=== PATIENT | male | born 1930 | race Caucasian/White ===

== ENCOUNTER 2016-11-08 10:11 | Inpatient (IN) | payer MEDICARE, BC ==
[2016-11-08 10:39] LABS: BASOPHILS % (AUTO) 1 % (0-3); EOSINOPHILS % (AUTO) 0 % (0-9); HEMATOCRIT 36 % (39-53); MEAN CORPUSCULAR HGB CONC 34.2 gm/dl (32.0-36.0); MEAN CORPUSCULAR VOLUME 84 fL (80-100); MONOCYTES % (AUTO) 9.8 % (0-12); NEUTROPHILS % (AUTO) 82.4 % (37-80)
[2016-11-08 10:52] LABS: ALBUMIN 3.5 gm/dl (3.4-5.0); CALCIUM 8.5 mg/dl (8.5-10.1); DIGOXIN 0.8 ng/ml (0.9-2.0)
[2016-11-08] MEDS ORDERED: SODIUM CHLORIDE 0.9% 1000ML 1,000 ML IV SCH ×2 (12:15→13:04)
[2016-11-08] MEDS ORDERED: SODIUM CHLORIDE 0.9% FLUSH 10 ML SOL IV PRN (12:15)
[2016-11-08] MEDS ORDERED: PATIENT EDUCATION 1 MISC PRN (12:58)
[2016-11-08] MEDS ORDERED: WARFARIN SODIUM 5 MG TAB PO SCH (15:15)
[2016-11-08] MEDS ORDERED: AMITRIPTYLINE 10 MG TAB PO SCH (21:00)
[2016-11-08] MEDS ORDERED: SIMVASTATIN 20 MG TAB PO SCH (21:00)
[2016-11-08] MEDS: DOCUSATE SODIUM 100 MG SGL PO SCH (21:06)
[2016-11-08] MEDS: BETAXOLOL EACHEYE SCH (21:08)
[2016-11-08] MEDS: TERAZOSIN HYDROCHLORIDE 1 MG CAP PO SCH (21:10)
[2016-11-08] MEDS: METOPROLOL SUCCINATE 50 MG ER TAB PO SCH (21:11)
[2016-11-08] MEDS: MELATONIN 3 MG TAB PO SCH (21:12)
[2016-11-08] MEDS: TRAVOPROST SOL EACHEYE SCH (21:13)
[2016-11-09 07:12] LABS: POTASSIUM 3.4 mMol/L (3.5-5.1)
[2016-11-09 07:23] LABS: HEMATOCRIT 32 % (39-53); MEAN CORPUSCULAR HGB CONC 34.4 gm/dl (32.0-36.0); MEAN CORPUSCULAR VOLUME 83 fL (80-100)
[2016-11-09 07:44] LABS: BASOPHILS % (MANUAL) 0 % (0-3); EOSINOPHILS % (MANUAL) 1 % (0-9); LYMPHOCYTES % (MANUAL) 9 % (10-50)
[2016-11-09 07:45] LABS: OVALOCYTES PRESENT; TARGET CELLS PRESENT
[2016-11-09] MEDS: DOCUSATE SODIUM 100 MG SGL PO SCH ×2 (09:14→20:06)
[2016-11-09] MEDS: PANTOPRAZOLE SODIUM 40 MG ECT PO SCH (09:16)
[2016-11-09] MEDS: DIGOXIN 0.125 MG TAB PO SCH (09:16)
[2016-11-09] MEDS: METOPROLOL SUCCINATE 50 MG ER TAB PO SCH (09:17)
[2016-11-09] MEDS: FUROSEMIDE 20 MG TAB PO SCH (09:17)
[2016-11-09] MEDS: BETAXOLOL EACHEYE SCH ×2 (09:18→20:05)
[2016-11-09] MEDS: SODIUM CHLORIDE 0.9% FLUSH 10 ML SOL IV SCH ×2 (12:30→20:05)
[2016-11-09] MEDS ORDERED: POTASSIUM CHLORIDE 10 MEQ TER ONE (12:30)
[2016-11-09] MEDS: POTASSIUM CHLORIDE 10 MEQ CAPSULE PO SCH (12:43)
[2016-11-09] MEDS ORDERED: WARFARIN SODIUM 5 MG TAB PO SCH (18:00)
[2016-11-09] MEDS: TERAZOSIN HYDROCHLORIDE 1 MG CAP PO SCH (20:06)
[2016-11-09] MEDS: TRAVOPROST SOL EACHEYE SCH (20:06)
[2016-11-09] MEDS: MELATONIN 3 MG TAB PO SCH (20:06)
[2016-11-10] MEDS: SODIUM CHLORIDE 0.9% FLUSH 10 ML SOL IV SCH ×3 (05:14→20:07)
[2016-11-10 07:17] LABS: CALCIUM 7.9 mg/dl (8.5-10.1); POTASSIUM 3.4 mMol/L (3.5-5.1)
[2016-11-10 07:34] LABS: BASOPHILS % (AUTO) 1 % (0-3); EOSINOPHILS % (AUTO) 4 % (0-9); HEMATOCRIT 33 % (39-53); MEAN CORPUSCULAR HGB CONC 36.2 gm/dl (32.0-36.0); MEAN CORPUSCULAR VOLUME 83 fL (80-100); MONOCYTES % (AUTO) 15.9 % (0-12); NEUTROPHILS % (AUTO) 60.5 % (37-80)
[2016-11-10] MEDS: BETAXOLOL EACHEYE SCH ×2 (08:43→20:07)
[2016-11-10] MEDS: DOCUSATE SODIUM 100 MG SGL PO SCH ×2 (08:47→20:07)
[2016-11-10] MEDS: PANTOPRAZOLE SODIUM 40 MG ECT PO SCH (08:50)
[2016-11-10] MEDS ORDERED: POTASSIUM CHLORIDE 10 MEQ TER PO SCH (09:00)
[2016-11-10] MEDS: METOPROLOL SUCCINATE 50 MG ER TAB PO SCH (09:49)
[2016-11-10] MEDS: POTASSIUM CHLORIDE 10 MEQ TER PO SCH (10:10)
[2016-11-10] MEDS: DIGOXIN 0.125 MG TAB PO SCH ×2 (10:11→10:23)
[2016-11-10] MEDS: POTASSIUM CHLORIDE 10 MEQ CAPSULE PO SCH (10:23)
[2016-11-10] MEDS: FUROSEMIDE 20 MG TAB PO SCH (10:23)
[2016-11-10] MEDS ORDERED: WARFARIN SODIUM 2.5 MG TAB PO SCH ×2 (15:08→18:00)
[2016-11-10] MEDS: MELATONIN 3 MG TAB PO SCH (20:08)
[2016-11-10] MEDS: TERAZOSIN HYDROCHLORIDE 1 MG CAP PO SCH (20:09)
[2016-11-10] MEDS: TRAVOPROST SOL EACHEYE SCH (20:10)
[2016-11-10 23:10] VITALS: TEMP 97.6
[2016-11-11] MEDS: SODIUM CHLORIDE 0.9% FLUSH 10 ML SOL IV SCH (04:42)
[2016-11-11 06:19] VITALS: BP 130/80; PULSE 77; RESP 20; O2SAT 95
[2016-11-11] MEDS ORDERED: DIGOXIN 0.125 MG TAB PO SCH (09:00)
[2016-11-11] MEDS: PANTOPRAZOLE SODIUM 40 MG ECT PO SCH (09:44)
[2016-11-11] MEDS: DOCUSATE SODIUM 100 MG SGL PO SCH (09:44)
[2016-11-11] MEDS: BETAXOLOL EACHEYE SCH (09:44)
[2016-11-11] MEDS: METOPROLOL SUCCINATE 50 MG ER TAB PO SCH (09:45)
[2016-11-11] MEDS: DIGOXIN 0.125 MG TAB PO SCH (09:45)
[2016-11-11] MEDS: POTASSIUM CHLORIDE 10 MEQ TER PO SCH (09:46)
== END 2016-11-11 10:45 | DRG 946 ==
LOC: ED 10:11 → ACUTE CARE 12:10 → UNDOADMIN 12:11 → ACUTE CARE 12:11
PROVIDERS: ADMIT Family Medicine; ATTEND Family Medicine
PROC: F01ZCZZ Transfer Assessment (ICD-10-PCS; principal; 2016-11-08)
PROC: F01ZDFZ Gait and/or Balance Assessment using Assistive, Adaptive, Supportive or Protective Equipment (ICD-10-PCS; 2016-11-08)
PROC: F01L0ZZ Muscle Performance Assessment of Musculoskeletal System - Lower Back / Lower Extremity (ICD-10-PCS; 2016-11-08)
PROC: F02Z1ZZ Dressing Assessment (ICD-10-PCS; 2016-11-08)
PROC: F02Z0ZZ Bathing/Showering Assessment (ICD-10-PCS; 2016-11-08)
PROC: F02Z3ZZ Grooming/Personal Hygiene Assessment (ICD-10-PCS; 2016-11-08)
DX: R53.1 Weakness (principal); E86.0 Dehydration; I48.2 Chronic atrial fibrillation; D64.9 Anemia, unspecified; I10 Essential (primary) hypertension; Z79.01 Long term (current) use of anticoagulants; R42 Dizziness and giddiness; E78.5 Hyperlipidemia, unspecified; Z86.73 Personal history of transient ischemic attack (TIA), and cerebral infarction without residual deficits
CPT/HCPCS: 36415; 70450; 80048; 80053; 80162; 84484; 85007; 85025; 85027; 85610; 93005; 93012; 99284; 99285

== ENCOUNTER 2017-01-29 10:05 | Observation (INO) | payer BC, MEDICAID, MEDICARE, OTHER ==
[2017-01-29] MEDS ORDERED: PHYTONADIONE 1 MG/0.5 ML SOL SC ONE (10:22)
[2017-01-29 10:32] LABS: BASOPHILS % (AUTO) 1 % (0-3); EOSINOPHILS % (AUTO) 3 % (0-9); HEMATOCRIT 37 % (39-53); MEAN CORPUSCULAR HGB CONC 33.8 gm/dl (32.0-36.0); MEAN CORPUSCULAR VOLUME 86 fL (80-100); MONOCYTES % (AUTO) 7.5 % (0-12); NEUTROPHILS % (AUTO) 74.6 % (37-80)
[2017-01-29] MEDS ORDERED: SODIUM CHLORIDE 0.9% FLUSH 10 ML SOL IV PRN (10:34)
[2017-01-29] MEDS ORDERED: PHYTONADIONE 10 MG/ML SOL ONE (10:35)
[2017-01-29 10:46] LABS: CALCIUM 8.6 mg/dl (8.5-10.1); POTASSIUM 4.2 mMol/L (3.5-5.1)
[2017-01-29] MEDS ORDERED: SODIUM CHLORIDE 0.9% 500 ML 500 ML IV ONE (10:50)
[2017-01-29] MEDS ORDERED: ACETAMINOPHEN 325 MG PO PRN (12:55)
[2017-01-29] MEDS ORDERED: SODIUM CHLORIDE 0.9% 1000 ML SOL IV ONE (13:00)
[2017-01-29] MEDS: [UNRECOGNIZED DRUG - OTHER] EACHEYE SCH (20:30)
[2017-01-29] MEDS: DOCUSATE SODIUM 100 MG SGL PO SCH (20:32)
[2017-01-29] MEDS: MELATONIN 5 MG PO SCH ×2 (20:32→22:03)
[2017-01-29] MEDS ORDERED: AMITRIPTYLINE 10 MG TAB PO SCH (21:00)
[2017-01-29] MEDS ORDERED: TRAVOPROST EACHEYE SCH (21:00)
[2017-01-29] MEDS ORDERED: TERAZOSIN HYDROCHLORIDE 1 MG CAP PO SCH (21:00)
[2017-01-30 07:17] LABS: CALCIUM 8.5 mg/dl (8.5-10.1); POTASSIUM 3.9 mMol/L (3.5-5.1)
[2017-01-30 07:28] LABS: BASOPHILS % (AUTO) 1 % (0-3); EOSINOPHILS % (AUTO) 5 % (0-9); HEMATOCRIT 33 % (39-53); MEAN CORPUSCULAR HGB CONC 33.6 gm/dl (32.0-36.0); MEAN CORPUSCULAR VOLUME 86 fL (80-100); MONOCYTES % (AUTO) 10.3 % (0-12); NEUTROPHILS % (AUTO) 63.4 % (37-80)
[2017-01-30] MEDS ORDERED: METOPROLOL SUCCINATE 50 MG ER TAB PO SCH (09:00)
[2017-01-30] MEDS ORDERED: OMEPRAZOLE 20 MG CAPSULE PO SCH (09:00)
[2017-01-30] MEDS ORDERED: DIGOXIN 0.125 MG TAB PO SCH (09:00)
[2017-01-30] MEDS ORDERED: SERTRALINE HYDROCHLORIDE 50 MG TAB PO SCH (09:00)
[2017-01-30] MEDS ORDERED: POTASSIUM CHLORIDE 10 MEQ TER PO SCH (09:00)
[2017-01-30 09:13] VITALS: BP 135/81; PULSE 71; RESP 18; TEMP 97.2; O2SAT 95
[2017-01-30] MEDS: [UNRECOGNIZED DRUG - OTHER] EACHEYE SCH (09:18)
[2017-01-30] MEDS: DOCUSATE SODIUM 100 MG SGL PO SCH (09:25)
[2017-01-30] MEDS ORDERED: PANTOPRAZOLE SODIUM 40 MG ECT PO SCH (09:30)
[2017-01-30] MEDS ORDERED: FERROUS SULFATE 325 MG TAB PO SCH (09:30)
[2017-01-30] MEDS ORDERED: TRAVOPROST SOL EACHEYE SCH (21:00)
[2017-01-30] MEDS ORDERED: BETAXOLOL 0.25% EACHEYE SCH (21:00)
== END 2017-01-30 12:20 | DRG 379 ==
LOC: ED 10:05 → UNDOADMOB 12:47 → ACUTE CARE 12:47
PROVIDERS: ADMIT Emergency Medicine; ATTEND Emergency Medicine
DX: K92.2 Gastrointestinal hemorrhage, unspecified (principal); R53.1 Weakness; T45.515A Adverse effect of anticoagulants, initial encounter; R79.1 Abnormal coagulation profile; Z79.01 Long term (current) use of anticoagulants
CPT/HCPCS: 36415; 74177; 80048; 80053; 85025; 85610; 86927; 93005; 99070; 99284; J3430; P9017; Q9967

== ENCOUNTER 2017-02-09 16:54 | Inpatient (IN) | payer BC, MEDICAID, MEDICARE, OTHER ==
[2017-02-09] MEDS ORDERED: SODIUM CHLORIDE 0.9% 1000ML 1,000 ML IV SCH (17:30)
[2017-02-09 17:31] LABS: BASOPHILS % (AUTO) 1 % (0-3); EOSINOPHILS % (AUTO) 4 % (0-9); HEMATOCRIT 32 % (39-53); MEAN CORPUSCULAR HGB CONC 34.3 gm/dl (32.0-36.0); MEAN CORPUSCULAR VOLUME 86 fL (80-100); NEUTROPHILS % (AUTO) 65.5 % (37-80)
[2017-02-09 17:45] LABS: CALCIUM 8.3 mg/dl (8.5-10.1); POTASSIUM 4.3 mMol/L (3.5-5.1)
[2017-02-09] MEDS ORDERED: ACETAMINOPHEN 325 MG PO PRN (18:25)
[2017-02-09] MEDS ORDERED: TERAZOSIN HCL 10 MG PO SCH (21:00)
[2017-02-09] MEDS ORDERED: TRAVOPROST EACHEYE SCH (21:00)
[2017-02-09] MEDS ORDERED: PANTOPRAZOLE SODIUM 40 MG VIAL 80 MG in SODIUM CHLORIDE 0.9% 100 ML 80 ML IV ONE (21:47)
[2017-02-09] MEDS: DEXTROSE/SALINE 0.45%/KCL10MEQ 1,000 ML/1,000 ML SOL IV SCH (21:54)
[2017-02-09] MEDS ORDERED: PANTOPRAZOLE SODIUM 40 MG/10 ML PDS ONE (22:00)
[2017-02-09] MEDS ORDERED: SODIUM CHLORIDE 0.9% 100 ML 100 ML IV ONE (22:00)
[2017-02-09] MEDS: SERTRALINE HYDROCHLORIDE 50 MG TAB PO SCH (22:24)
[2017-02-09] MEDS: [UNRECOGNIZED DRUG - OTHER] EACHEYE SCH (22:28)
[2017-02-09] MEDS: MELATONIN 3 MG TAB PO SCH (22:29)
[2017-02-09] MEDS: AMITRIPTYLINE 10 MG TAB PO SCH (22:29)
[2017-02-09] MEDS: SODIUM CHLORIDE 0.9% 100 ML 80 ML with PANTOPRAZOLE SODIUM 40 MG VIAL 80 MG IV SCH (22:37)
[2017-02-10 07:23] LABS: BASOPHILS % (AUTO) 2 % (0-3); EOSINOPHILS % (AUTO) 5 % (0-9); HEMATOCRIT 30 % (39-53); MEAN CORPUSCULAR HGB CONC 35.9 gm/dl (32.0-36.0); MEAN CORPUSCULAR VOLUME 85 fL (80-100); MONOCYTES % (AUTO) 12.1 % (0-12); NEUTROPHILS % (AUTO) 63.5 % (37-80)
[2017-02-10] MEDS ORDERED: PANTOPRAZOLE SODIUM 40 MG/10 ML PDS ONE (07:46)
[2017-02-10] MEDS ORDERED: SODIUM CHLORIDE 0.9% 100 ML 100 ML IV ONE (07:46)
[2017-02-10] MEDS: SODIUM CHLORIDE 0.9% 100 ML 80 ML with PANTOPRAZOLE SODIUM 40 MG VIAL 80 MG IV SCH (08:06)
[2017-02-10] MEDS ORDERED: OMEPRAZOLE 20 MG CAPSULE PO SCH (09:00)
[2017-02-10] MEDS: [UNRECOGNIZED DRUG - OTHER] EACHEYE SCH (09:28)
[2017-02-10] MEDS: POTASSIUM CHLORIDE 10 MEQ TER PO SCH (09:31)
[2017-02-10] MEDS: DIGOXIN 0.125 MG TAB PO SCH (09:32)
[2017-02-10] MEDS: PANTOPRAZOLE SODIUM 40 MG ECT PO SCH (09:32)
[2017-02-10] MEDS: METOPROLOL SUCCINATE 50 MG ER TAB PO SCH (09:32)
[2017-02-10] MEDS: FERROUS SULFATE 325 MG TAB PO SCH (09:33)
[2017-02-10] MEDS: BETAXOLOL EACHEYE SCH ×2 (09:39→20:16)
[2017-02-10] MEDS: DEXTROSE/SALINE 0.45%/KCL10MEQ 1,000 ML/1,000 ML SOL IV SCH (11:59)
[2017-02-10] MEDS: AMITRIPTYLINE 10 MG TAB PO SCH (20:18)
[2017-02-10] MEDS: SERTRALINE HYDROCHLORIDE 50 MG TAB PO SCH (20:19)
[2017-02-10] MEDS: MELATONIN 3 MG TAB PO SCH (20:35)
[2017-02-10] MEDS ORDERED: TERAZOSIN HYDROCHLORIDE 1 MG CAP PO SCH (21:00)
[2017-02-10] MEDS ORDERED: TRAVOPROST SOL EACHEYE SCH (21:00)
[2017-02-11] MEDS: DEXTROSE/SALINE 0.45%/KCL10MEQ 1,000 ML/1,000 ML SOL IV SCH (02:24)
[2017-02-11 04:48] VITALS: O2SAT 95
[2017-02-11 07:08] LABS: BASOPHILS % (AUTO) 1 % (0-3); EOSINOPHILS % (AUTO) 5 % (0-9); HEMATOCRIT 30 % (39-53); MEAN CORPUSCULAR HGB CONC 34.4 gm/dl (32.0-36.0); MEAN CORPUSCULAR VOLUME 85 fL (80-100); MONOCYTES % (AUTO) 12.2 % (0-12); NEUTROPHILS % (AUTO) 65.1 % (37-80)
[2017-02-11 08:04] VITALS: BP 128/76; PULSE 69; RESP 18; TEMP 97
[2017-02-11] MEDS: BETAXOLOL EACHEYE SCH (08:05)
[2017-02-11] MEDS: PANTOPRAZOLE SODIUM 40 MG ECT PO SCH (08:06)
[2017-02-11] MEDS: POTASSIUM CHLORIDE 10 MEQ TER PO SCH (08:06)
[2017-02-11] MEDS: FERROUS SULFATE 325 MG TAB PO SCH (08:06)
[2017-02-11] MEDS: DIGOXIN 0.125 MG TAB PO SCH (08:06)
[2017-02-11] MEDS: METOPROLOL SUCCINATE 50 MG ER TAB PO SCH (08:06)
== END 2017-02-11 10:55 | DRG 378 ==
LOC: ED 16:54 → ACUTE CARE 18:24 → UNDOADMIN 18:24 → ACUTE CARE 18:40
PROVIDERS: ADMIT Family Medicine; ATTEND Family Medicine
DX: K92.2 Gastrointestinal hemorrhage, unspecified (principal); E87.1 Hypo-osmolality and hyponatremia; I48.2 Chronic atrial fibrillation; I10 Essential (primary) hypertension
CPT/HCPCS: 36415; 80048; 80053; 80162; 82272; 85018; 85025; 85610; 85730; 96365; 99070; 99221; 99283; A6232